=== PATIENT | male | born 1960 | race Caucasian/White ===

== ENCOUNTER 2017-10-15 00:26 | Emergency (ER) | payer MEDICAID ==
[2017-10-15 00:38] VITALS: RESP 16
--- NOTE | 2017-10-15 04:10 | EDPHY ---
H & P Stated Complaint: EtOH Time Seen by Provider: 10/15/17 01:10 HPI/ROS: CHIEF COMPLAINT: Alcohol intoxication HISTORY OF PRESENT ILLNESS: Patient was found by bystanders to be severely intoxicated and therefore they called EMS system. Patient denies any injuries , denies loss of consciousness, denies any recent trauma. Patient denies coingestion, patient denies suicidal or homicidal behavior. REVIEW OF SYSTEMS: Constitutional: No fever, no chills. Eyes:No visual changes. ENT: No sore throat. Respiratory: No cough, no shortness of breath. Cardiac: No chest pain. Gastrointestinal: No abdominal pain, vomiting or diarrhea. Genitourinary: No hematuria. Musculoskeletal: No back pain. Skin: No rashes. Neurological: No headache. PAST MEDICAL HISTORY: None PAST SURGICAL HISTORY: None SOCIAL HISTORY: Homeless, history of alcohol use PHYSICAL EXAM: General Appearance: Alert, well hydrated, appropriate, and non-toxic appearing. Head: Atraumatic without scalp tenderness or obvious injury Eyes: Pupils equal, round, reactive to light, no injection. Ears: Clear bilaterally, no perforation, normal landmarks Nose: Atraumatic, no rhinorrhea, clear. Throat: mucus membranes moist. Neck: Supple, non-tender, no lymphadenopathy. Respiratory: No retractions, no distress, no wheezes, and no accessory muscle use. Lungs are clear to auscultation bilaterally. Cardiovascular: Regular rate and rhythm, no murmurs, rubs, or gallops. Gastrointestinal: Abdomen is soft, non-tender, non-distended Musculoskeletal: Normal active ROM of all extremities, atraumatic. Neurological: Alert, appropriate, and interactive. Moves all extremities equally. Skin: No rashes, good turgor, no nodules on palpation. MEDICAL DECISION MAKING: I serially examined this patient since the patient's arrival here in the emergency department. The patient continues to become more and more sober with each examination. I serially questioned the patient and the patient's story given initially has not changed. The patient still denies any trauma, any head injury, and any illicit drug use. At this point, the patient is walking the department freely and is clinically sober. We're discharging the patient to the [facility] in stable condition. Source: EMS Exam Limitations: Intoxication - Personal History Current Tetanus Diphtheria and Acellular Pertussis (TDAP): Unsure - Medical/Surgical History Hx Asthma: No Hx Chronic Respiratory Disease: No Hx Diabetes: No Hx Cardiac Disease: No Hx Renal Disease: No Hx Cirrhosis: No Hx Alcoholism: Yes Hx HIV/AIDS: No Hx Splenectomy or Spleen Trauma: No Other PMH: alcoholism - Social History Smoking Status: Current every day smoker Constitutional: Initial Vital Signs Temperature (C) 34.6 C L 10/15/17 00:33 Heart Rate 84 10/15/17 00:33 Respiratory Rate 16 10/15/17 00:33 Blood Pressure 140/74 H 10/15/17 00:33 O2 Sat (%) 96 10/15/17 00:33 O2 Delivery Mode Room Air Allergies/Adverse Reactions: No Known Allergies Allergy (Unverified 10/15/17 00:32) Home Medications: Medication Instructions Recorded NK [No Known Home Meds] 10/15/17 Departure - Departure Disposition: Home, Routine, Self-Care Clinical Impression: Alcoholic intoxication Qualifiers: Complication of substance-induced condition: with delirium Qualified Code(s): F10.921 - Alcohol use, unspecified with intoxication delirium Condition: Good Instructions: Alcohol Intoxication (ED) Referrals: [facility] 24 Hours [Outside] - As per Instructions
[2017-10-15 04:17] VITALS: PULSE 74
[2017-10-15 04:19] VITALS: BP 144/62; TEMP 97.5; O2SAT 92
== END 2017-10-15 04:19 | disposition home or self-care (01) ==
DX: F10.921 Alcohol use, unspecified with intoxication delirium (principal); F17.200 Nicotine dependence, unspecified, uncomplicated

== ENCOUNTER 2017-10-15 13:09 | Emergency (ER) | payer MEDICAID ==
[2017-10-15] MEDS ORDERED: ONDANSETRON 4 MG/2 ML VIAL ONE (13:45)
[2017-10-15 13:48] LABS: % IMMATURE GRANULYOCYTES 0.3 % (0.0-1.1); ABSOLUTE IMMATURE GRANULOCYTES 0.02 10^3/uL (0.00-0.10); ADD DIFF? NO; ADD MORPH? YES; ADD SCAN? NO; ATYPICAL LYMPHOCYTE FLAG 0 (0-99); FRAGMENT RBC FLAG 0 (0-99); HEMOGLOBIN 13.5 g/dL (13.7-17.5); LEFT SHIFT FLG 0 (0-99); LIPEMIA HEMOLYSIS FLAG 80 (0-99); MEAN CELL HEMOGLOBIN 26.2 pg (27.9-34.1); MEAN CELL HEMOGLOBIN CONCENTR. 32.1 g/dL (32.4-36.7); MEAN CELL VOLUME 81.6 fL (81.5-99.8); MEAN PLATELET VOLUME 9.4 fL (8.7-11.7); PLATELET CLUMPS FLAG 0 (0-99); PLATELET COUNT 164 10^3/uL (150-400); RED BLOOD CELL COUNT 5.15 10^6/uL (4.40-6.38)
--- NOTE | 2017-10-15 13:55 | CPEKG ---
Heart Rate: 94 RR Interval: 638 P-R Interval: 148 QRSD Interval: 104 QT Interval: 416 QTC Interval: 521 P Tranquillity: 57 QRS Tranquillity: 84 T Wave Tranquillity: 63 EKG Severity - ABNORMAL ECG - EKG Impression: SINUS RHYTHM EKG Impression: BORDERLINE INFERIOR Q WAVES EKG Impression: PROLONGED QT INTERVAL Electronically Signed By: Edwin Smith 15-Oct-2017 14:10:33
[2017-10-15 13:57] LABS: RED CELL DISTRIBUTION WIDTH 20.5 % (11.5-15.2)
[2017-10-15] MEDS ORDERED: LORazepam 2 MG/ML INJ ONE (13:57)
[2017-10-15] MEDS ORDERED: ONDANSETRON 4 MG/2 ML VIAL IVP ONE (14:01)
[2017-10-15] MEDS ORDERED: LORazepam 2 MG/ML INJ IVP ONE ×2 (14:01→14:03)
[2017-10-15] MEDS ORDERED: NS 1,000 ML IV ONE (14:06)
[2017-10-15] MEDS ORDERED: CHLORDIAZEPOXIDE 25MG PREPK#6 BTL TAKEHOME ONE (14:15)
--- NOTE | 2017-10-15 14:15 | EDPHY ---
General - History Smoking Status: Current every day smoker Narrative: CHIEF COMPLAINT: Alcohol withdrawal HISTORY OF PRESENT ILLNESS: Patient arrives by EMS with reports of alcohol withdrawal, left shoulder pain and epigastric pain. He was seen here last night and was acutely intoxicated. He was dispositioned to the [facility] [place]. He reports being there since last night and not drinking any further alcohol. Earlier today he felt as though he was going to have a seizure because this. He has poor recollection of yesterday, but last night prior to presentation to the ER he did fall striking his left shoulder. Since then he has had pain in the shoulder and the epigastrium. No headache or loss of conscious. No neck pain. No shortness of breath. The shoulder epigastric pain or severe. He has felt nauseated but not actually vomited here. Admits to drinking at least 1 pt+ per day of liquor. No other associated complaints or modifying factors. No other associated complaints or modifying factors. REVIEW OF SYSTEMS: Ten systems reviewed and are negative unless otherwise noted in the HPI PCP: [facility] SPECIALISTS: None PAST MEDICAL HISTORY: Alcoholism SOCIAL HISTORY: Daily smoker. Alcohol use daily. FAMILY HISTORY: Noncontributory EXAMINATION General Appearance: Alert, no distress, unkempt Head: normocephalic, atraumatic Eyes: Pupils equal and round, no conjunctival pallor or injection. Painless range of motion with EOMs. No diplopia with upward outward gaze ENT, Mouth: Mucous membranes moist. Uvula is midline. Airway is widely patent Neck: Normal inspection, supple, non-tender Respiratory: Scattered rhonchi. No wheezing, crackles or diminishment. Cardiovascular: Regular rate and rhythm. No murmur Gastrointestinal: Abdomen is soft and nontender. Tenderness to palpation in the epigastrium. No tympany. No rigidity. Back: non-tender, no bony abnormalities Neurological: GCS 15. A&O, nonfocal, strength is symmetric in all 4 limbs. Normal mental status. No tremor. Skin: Warm and dry, no rash. No petechiae or purpura. Ecchymosis around the left eye that does not appear acute. Extremities: Tenderness of the left shoulder. Range of motion in the shoulder limited due to pain. No tenderness of the left elbow, wrist or hand. Neurovascular intact distal to the elbow Psychiatric: Mood and affect normal DIFFERENTIAL DIAGNOSES: Including but not limited to shoulder sprain, humeral fracture, dislocation, strain, pancreatitis, alcohol withdrawal, gastritis MDM: 2:00 p.m. Possible alcohol withdrawal with no evidence of delirium tremens or encephalopathy. Vital signs are within normal limits. EKG ordered prior to my evaluation the patient is unremarkable. Left shoulder will be imaged by plain film. Is epigastric pain does not appear to be cardiac in nature, and has been present since last night. Laboratory studies ordered prior to my examination. Plan for disposition back to the [facility] with Librium. Chart review performed and I do not see that he was sent over to the [facility] with Librium last night. 3:25 p.m. Chest x-ray unremarkable. Shoulder film unremarkable. Troponin negative. Lipase negative. Serum alcohol level is 126. This is reportedly what his breath alcohol test was last night. He does not appear to be in withdrawals. No evidence of DT or encephalopathy. Everything is negative from our workup here. I do feel he is stable for discharge home as he is ambulatory. I have offered transfer to the [facility] for Librium taper. He has agreed to proceed with this. He is not on [facility] hold but the [facility] will take him back. He is discharged in stable condition. He will be sent over by cab with Librium provided from the ER. SUPERVISION: Patient was independently examined, but I discussed the case with my secondary supervising physician Dr. Smith EKG interpretation: Dr. Smith ([facility]) - Diagnostics Imaging Results: Imaging Impressions Chest X-Ray 10/15/17 14:00 Impression: Negative 2. Left Shoulder, 3 views History: Fall last night, pain, popping Findings: No fracture or dislocation is identified. The AC joint is normally aligned. There is no evidence for arthritis. There is no soft tissue calcification or ossification. Impression: Negative. Shoulder X-Ray 10/15/17 14:00 Impression: Negative 2. Left Shoulder, 3 views History: Fall last night, pain, popping Findings: No fracture or dislocation is identified. The AC joint is normally aligned. There is no evidence for arthritis. There is no soft tissue calcification or ossification. Impression: Negative. - Objective Vital Signs: Initial Vital Signs Temperature (C) 36.4 C 10/15/17 13:05 Heart Rate 94 10/15/17 13:05 Respiratory Rate 17 10/15/17 13:05 Blood Pressure 130/87 H 10/15/17 13:05 O2 Sat (%) 96 10/15/17 13:05 O2 Delivery Mode Room Air Allergies/Adverse Reactions: No Known Allergies Allergy (Unverified 10/15/17 00:32) Home Medications: Medication Instructions Recorded NK [No Known Home Meds] 10/15/17 Laboratory Results: Laboratory Results 10/15/17 13:15 10/15/17 13:15 10/15/17 10/15/17 10/15/17 Unknown 13:15 13:15 WBC 6.35 10^3/uL 10^3/uL (3.80-9.50) RBC 5.15 10^6/uL 10^6/uL (4.40-6.38) Hgb 13.5 g/dL L g/dL (13.7-17.5) Hct 42.0 % % (40.0-51.0) MCV 81.6 fL fL (81.5-99.8) MCH 26.2 pg L pg (27.9-34.1) MCHC 32.1 g/dL L g/dL (32.4-36.7) RDW 20.5 % H % (11.5-15.2) Plt Count 164 10^3/uL 10^3/uL (150-400) MPV 9.4 fL fL (8.7-11.7) Neut % (Auto) 62.8 % % (39.3-74.2) Lymph % (Auto) 27.6 % % (15.0-45.0) [place] % (Auto) 7.1 % % (4.5-13.0) Eos % (Auto) 1.1 % % (0.6-7.6) Baso % (Auto) 1.1 % % (0.3-1.7) Nucleat RBC Rel Count 0.0 % % (0.0-0.2) Absolute Neuts (auto) 3.99 10^3/uL 10^3/uL (1.70-6.50) Absolute Lymphs (auto) 1.75 10^3/uL 10^3/uL (1.00-3.00) Absolute Monos (auto) 0.45 10^3/uL 10^3/uL (0.30-0.80) Absolute Eos (auto) 0.07 10^3/uL 10^3/uL (0.03-0.40) Absolute Basos (auto) 0.07 10^3/uL 10^3/uL (0.02-0.10) Absolute Nucleated RBC 0.00 10^3/uL 10^3/uL (0-0.01) Immature Gran % 0.3 % % (0.0-1.1) Immature Gran # 0.02 10^3/uL 10^3/uL (0.00-0.10) Platelet Estimate ADEQUATE (ADEQ) Polychromasia 1+ H Hypochromasia 1+ H Microcytic Cells 2+ H Oval Macrocytes 1+ H Sodium 141 mEq/L mEq/L (134-144) Potassium 3.6 mEq/L mEq/L (3.5-5.2) Chloride 95 mEq/L L mEq/L (97-110) Carbon Dioxide 26 mEq/l mEq/l (22-31) Anion Gap 20 mEq/L H mEq/L (8-16) BUN 9 mg/dL mg/dL (7-23) Creatinine 0.9 mg/dL mg/dL (0.7-1.3) Estimated GFR > 60 Glucose 126 mg/dL H mg/dL (70-100) Calcium 10.0 mg/dL mg/dL (8.5-10.4) Troponin I 0.015 ng/mL ng/mL (0.000-0.034) Lipase 72 IU/L IU/L (23-300) Ethyl Alcohol 196 mg/dL H mg/dL (0-10) Medications Given: Discontinued Medications Chlordiazepoxide (Librium 25 Mg Prepack#6) 1 btl TAKEHOME EDNOW ONE Stop: 10/15/17 14:16 Last Admin: 10/15/17 14:46 Dose: 1 btl Chlordiazepoxide HCl (Librium) 25 mg PO EDNOW ONE Stop: 10/15/17 16:21 Last Admin: 10/15/17 16:24 Dose: 25 mg Sodium Chloride (Ns) 1,000 mls @ 0 mls/hr IV ONCE ONE PRN Reason: Wide Open Stop: 10/15/17 14:07 Last Admin: 10/15/17 14:06 Dose: 1,000 mls Lorazepam (Ativan Injection) 1 mg IVP EDNOW ONE Stop: 10/15/17 14:02 Last Admin: 10/15/17 14:07 Dose: Not Given Lorazepam (Ativan Injection) 2 mg IVP EDNOW ONE Stop: 10/15/17 14:04 Last Admin: 10/15/17 14:04 Dose: 2 mg Lorazepam (Ativan) 1 mg PO EDNOW ONE Stop: 10/15/17 16:21 Last Admin: 10/15/17 16:24 Dose: 1 mg Ondansetron HCl (Zofran) 4 mg IVP EDNOW ONE Stop: 10/15/17 14:02 Last Admin: 10/15/17 14:04 Dose: 4 mg Departure - Departure Disposition: Home, Routine, Self-Care Clinical Impression: Alcohol dependence Qualifiers: Substance use status: uncomplicated Qualified Code(s): F10.20 - Alcohol dependence, uncomplicated Sprain of shoulder joint Qualifiers: Encounter type: initial encounter Shoulder sprain type: unspecified sprain Laterality: left Qualified Code(s): S43.402A - Unspecified sprain of left shoulder joint, initial encounter Condition: Good Instructions: Gastritis (ED), Abuse of Alcohol (ED), At-Risk Alcohol Use (ED), Shoulder Sprain (ED) Additional Instructions: 1. Librium protocol at the [facility] 2. ED precautions as discussed 3. Contact [facility] tomorrow morning for outpatient follow-up Referrals: [facility],. [Clinic] - As per Instructions [facility] Detox 24 Hours [Outside] - As per Instructions
[2017-10-15 14:26] LABS: MICROCYTES 2+
[2017-10-15 14:27] LABS: HYPOCHROMIA 1+; MACROCYTES 1+; PLATELET ESTIMATE ADEQUATE (ADEQ); POLYCHROMASIA 1+
[2017-10-15 14:30] LABS: ANION GAP 20 mEq/L (8-16); CARBON DIOXIDE 26 mEq/l (22-31); CHLORIDE 95 mEq/L (97-110); CREATININE 0.9 mg/dL (0.7-1.3); GLOMERULAR FILTRATION RATE > 60; GLUCOSE 126 mg/dL (70-100); POTASSIUM 3.6 mEq/L (3.5-5.2); SODIUM 141 mEq/L (134-144)
[2017-10-15 14:32] LABS: ETHANOL SERUM 196 mg/dL (0-10)
[2017-10-15 14:41] LABS: TROPONIN I 0.015 ng/mL (0.000-0.034)
[2017-10-15] MEDS ORDERED: LORazepam 1 MG TAB PO ONE (16:20)
[2017-10-15] MEDS ORDERED: chlordiazePOXIDE 25 MG CAP PO ONE (16:20)
[2017-10-15 16:22] VITALS: BP 147/95; PULSE 93; RESP 16; TEMP 98.4; O2SAT 96
== END 2017-10-15 16:36 | disposition home or self-care (01) ==
LOC: EDUNIT#
DX: S43.402A Unspecified sprain of left shoulder joint, initial encounter (principal); F10.20 Alcohol dependence, uncomplicated; F17.200 Nicotine dependence, unspecified, uncomplicated; W01.198A Fall on same level from slipping, tripping and stumbling with subsequent striking against other object, initial encounter; Y99.8 Other external cause status
CPT/HCPCS: 96374; G0480; J2060; J2405